=== PATIENT | male | born 1940 | race African-American/Black ===

== ENCOUNTER 2018-02-23 23:56 | Emergency (ER) | payer MEDICAID, MEDICARE, OTHER ==
[~2018-02-23] VITALS: Ht 182.9 cm; Wt 72.6 kg
[~2018-02-23 23:56] MED LIST: AMLODIPINE BESY10 MG ORAL; CYMBALTA20 MG ORAL; HYDROCHLOROTHIA25 MG ORAL; LEVETIRACETAM500 MG ORAL; LEVETIRACETAM500 MG PO; NORVASC2.5 MG ORAL; PLAVIX75 MG ORAL; SPIRONOLACTONE25 MG PO; VICODIN 5-5001 EACH ORAL; ZOLPIDEM TARTRA10 MG ORAL
[2018-02-24] MEDS ORDERED: Morphine Sulfate 2mg/ml Inj IVP ONE ×2 (00:30→03:00)
--- NOTE | 2018-02-24 00:30 | NUR ---
ED Nurse Note: Pt arrived ER with EMS and . Pt states he is cpughing with mucos and flu like syndrome. Pt is AO x 4times, VSS, on room air no distress, R side weakness due to Hx of stroke. CLARA seen Pt at bedside.
[2018-02-24 00:35] VITALS: BP 125/77
--- NOTE | 2018-02-24 00:40 | NUR ---
ED Nurse Note: Urine and blood sample sent to lab.
[2018-02-24 00:54] LABS: EOSINOPHILS % (AUTO) 0.8 % (0.0-3.0); HEMATOCRIT 43.4 % (42.0-52.0); HEMOGLOBIN 14.2 G/DL (14.2-18.0); LYMPHOCYTES % (AUTO) 17.4 % (20.0-45.0); MEAN CORPUSCULAR VOLUME 91 FL (80-99); MONOCYTES % (AUTO) 1.3 % (1.0-10.0); NEUTROPHILS % (AUTO) 79.5 % (45.0-75.0); PLATELET COUNT 163 K/UL (150-450); RED BLOOD COUNT 4.76 M/UL (4.70-6.10); RED CELL DISTRIBUTION WIDTH 13.6 % (11.6-14.8); WHITE BLOOD COUNT 6.2 K/UL (4.8-10.8)
[2018-02-24 00:57] LABS: APPEARANCE,URINE CLOUDY; BILIRUBIN, URINE NEGATIVE (NEGATIVE); GLUCOSE, URINE (UA) NEGATIVE (NEGATIVE); KETONES,URINE NEGATIVE (NEGATIVE); LEUKOCYTE ESTERASE ,URINE 3+ (NEGATIVE); NITRITE,URINE POSITIVE (NEGATIVE); PH,URINE 5 (4.5-8.0); PROTEIN,URINE 2+ (NEGATIVE); UROBILINOGEN,URINE NORMAL MG/DL (0.0-1.0)
[2018-02-24 00:59] LABS: COLOR,URINE YELLOW
--- NOTE | 2018-02-24 01:00 | NUR ---
ED Nurse Note: will visit Pt in the morning. Dorota [phone]
--- NOTE | 2018-02-24 01:05 | Emergency Room Report ---
History of Present Illness General Chief Complaint: Flu Like Symptoms Source: Patient, Significant Other, EMS Present Illness HPI Patient presents via EMS for complaint of back pain rigors and cough. Apparently the ran out of Brothers and the pharmacy is not filling the prescription for chronic back pain post stroke. This is more on the right-hand side. She did give Tylenol before paramedics arrived and after giving the Tylenol the patient had period of rigors without loss of consciousness. Also he had difficulty with breathing at that time with a cough. There was no choking episode. Patient initially denies hypertension but review of his medications show that he 's on Norvasc. In the last 3 months the has had to stop blood pressure medications because of hypotension. This has been done under the direction of her physician. The patient is on Plavix. Initially stated was on Coumadin which is not correct. The back pain is chronic and not changed. It's right-sided and radiates down into his leg. He has right-sided weakness from the stroke. He denies dysuria, diarrhea, constipation, chest pain, nausea, vomiting or skin rashes. Allergies: Coded Allergies: PENICILLINS (Verified Allergy, Mild, Hives, 07/07/12) Patient History Past Medical History: see triage record Social History: Denies: smoking - former, alcohol use, drug use Social History Narrative born in [place] Reviewed Nursing Documentation: PMH: Agreed; PSxH: Agreed Nursing Documentation-PMH Hx Cardiac Problems: Yes Hx Hypertension: No Hx Pacemaker: No Hx Asthma: No Hx COPD: No Hx Diabetes: No Hx Cancer: No Hx Gastrointestinal Problems: No Hx Dialysis: No History Of Psychiatric Problem: No Hx Neurological Problems: No Hx Cerebrovascular Accident: Yes Hx Transient Ischemic Attacks: Yes Hx Seizures: No Hx Weakness: Yes - R SIDED Review of Systems All Other Systems: negative except mentioned in HPI Physical Exam Vital Signs Date Time Temp Pulse Resp B/P (MAP) Pulse Ox O2 Delivery O2 Flow Rate FiO2 02/24/18 00:07 99.1 107 18 148/92 98 Room Air Sp02 EP Interpretation: reviewed, normal General Appearance: no apparent distress, GCS 15, Chronically Ill Head: normocephalic Eyes: right eye other - lid laxity; bilateral eye normal inspection, bilateral eye PERRL ENT: moist mucus membranes, other - Facial asymmetry with right weakness Neck: supple Respiratory: rales, rhonchi Cardiovascular #1: regular rate, rhythm Cardiovascular #2: 2+ radial (R) Gastrointestinal: normal inspection, normal bowel sounds, non tender, no mass, non-distended Musculoskeletal: back normal, normal range of motion Neurologic: alert, DTRs symmetric, sensory intact, motor weakness - R sided with atrophy, other - slurred speech Psychiatric: depressed affect Skin: normal color, no rash Medical Decision Making Diagnostic Impression: Primary Impression: Aspiration into airway Qualified Codes: T17.908A - Unspecified foreign body in respiratory tract, part unspecified causing other injury, initial encounter Additional Impressions: UTI (urinary tract infection) Qualified Codes: N39.0 - Urinary tract infection, site not specified Status post CVA Left lower lobe pneumonia Qualified Codes: J18.1 - Lobar pneumonia, unspecified organism ER Course Patient presents with rigors, rhonchi, right ears and back pain post stroke. Differential includes pneumonia, aspiration, acute myocardial infarction, other infectious source, sepsis, electrolyte imbalance amongst others. Based on the report seizure is less likely. Evaluation will be with EKG, chest x-ray and labs including blood cultures and lactate. The patient will be treated with breathing treatments and gentle IV hydration. Most likely he will need to be started on antibiotics. Based on the fact he's had a stroke and most likely is an aspiration the patient will need to have swallowing studies done before tolerating any oral medication. Patient NPO. EKG with NSR. Labs with UTI. Abx begun. Lactate elevated. Bolus NS. Patient not tachycardic and perfusion good, mentation normal according to . 1:30. Discussed with Dr. Lindsey who is working to try to transfer to [facility]. Repeat morphine for back pain. Repeat lactate improved, but still elevated. Continued hydration. Accepted at [facility]. Transfer ALS. Laboratory Tests Test 02/24/18 00:30 02/24/18 02:30 White Blood Count 6.2 K/UL (4.8-10.8) Red Blood Count 4.76 M/UL (4.70-6.10) Hemoglobin 14.2 G/DL (14.2-18.0) Hematocrit 43.4 % (42.0-52.0) Mean Corpuscular Volume 91 FL (80-99) Mean Corpuscular Hemoglobin 29.9 PG (27.0-31.0) Mean Corpuscular Hemoglobin Concent 32.7 G/DL (32.0-36.0) Red Cell Distribution Width 13.6 % (11.6-14.8) Platelet Count 163 K/UL (150-450) Mean Platelet Volume 7.0 FL (6.5-10.1) Neutrophils (%) (Auto) 79.5 % (45.0-75.0) H Lymphocytes (%) (Auto) 17.4 % (20.0-45.0) L Monocytes (%) (Auto) 1.3 % (1.0-10.0) Eosinophils (%) (Auto) 0.8 % (0.0-3.0) Basophils (%) (Auto) 1.0 % (0.0-2.0) Prothrombin Time 11.3 SEC (9.30-11.50) Prothrombin Time INR 1.1 (0.9-1.1) PTT 28 SEC (23-33) Urine Color Yellow Urine Appearance Cloudy Urine pH 5 (4.5-8.0) Urine Specific [place] 1.015 (1.005-1.035) Urine Protein 2+ (NEGATIVE) H Urine Glucose (UA) Negative (NEGATIVE) Urine Ketones Negative (NEGATIVE) Urine Blood 3+ (NEGATIVE) H Urine Nitrite Positive (NEGATIVE) H Urine Bilirubin Negative (NEGATIVE) Urine Urobilinogen Normal MG/DL (0.0-1.0) Urine Leukocyte Esterase 3+ (NEGATIVE) H Urine RBC 5-10 /HPF (0 - 0) H Urine WBC 40-60 /HPF (0 - 0) H Urine Squamous Epithelial Cells None /LPF (NONE/OCC) Urine Bacteria Many /HPF (NONE) H Sodium Level 139 MMOL/L (136-145) Potassium Level 3.6 MMOL/L (3.5-5.1) Chloride Level 101 MMOL/L (98-107) Carbon Dioxide Level 24 MMOL/L (21-32) Anion Gap 14 mmol/L (5-15) Blood Urea Nitrogen 12 mg/dL (7-18) Creatinine 0.9 MG/DL (0.55-1.30) Estimate Glomerular Filtration Rate mL/min (>60) Glucose Level 108 MG/DL (74-106) H Lactic Acid Level 3.30 mmol/L (0.4-2.0) H 2.50 mmol/L (0.66-2.22) H Calcium Level 9.0 MG/DL (8.5-10.1) Total Bilirubin 0.4 MG/DL (0.2-1.0) Aspartate Amino Transferase (AST) 18 U/L (15-37) Alanine Aminotransferase (ALT) 22 U/L (12-78) Alkaline Phosphatase 90 U/L (46-116) Total Creatine Kinase 62 U/L (26-308) Troponin I 0.000 ng/mL (0.000-0.056) Pro-B-Type Natriuretic Peptide 24 pg/mL (0-125) Total Protein 8.0 G/DL (6.4-8.2) Albumin 3.6 G/DL (3.4-5.0) Globulin 4.4 g/dL Albumin/Globulin Ratio 0.8 (1.0-2.7) L Microbiology Date/Time Source Procedure Growth Status 02/24/18 00:30 Nasal Nares Influenza Types A,B Antigen (DEREK) - Final Complete EKG Diagnostic Results Rate: normal Rhythm: NSR ST Segments: no acute changes - Nonspecific ST-T wave changes Rhythm Strip Diag. Results EP Interpretation: yes Rhythm: NSR, no PVC's, no ectopy Chest X-Ray Diagnostic Results Chest X-Ray Diagnostic Results : Chest X-Ray Ordered: Yes # of Views/Limited/Complete: 1 View Indication: Other EP Interpretation: Yes Interpretation: no effusion, no pneumothorax, other - Left lower lobe infiltr, right atelectasis Impression: Other Electronically Signed by: Electronically signed by Davin Bernardo MD Last Vital Signs Date Time Temp Pulse Resp B/P (MAP) Pulse Ox O2 Delivery O2 Flow Rate FiO2 02/24/18 04:32 97.6 70 19 113/65 100 Room Air 21 Status: improved Disposition: XFER SHT-TRM HOSP Condition: Serious Referrals: [facility],REFERRING (PCP) Davin Bernardo MD Feb 24, 2018 01:05
[2018-02-24 01:07] LABS: ANION GAP 14 mmol/L (5-15); BLOOD UREA NITROGEN 12 mg/dL (7-18); CARBON DIOXIDE 24 MMOL/L (21-32); CHLORIDE 101 MMOL/L (98-107); CREATININE 0.9 MG/DL (0.55-1.30); POTASSIUM 3.6 MMOL/L (3.5-5.1); SODIUM 139 MMOL/L (136-145)
[2018-02-24] MEDS ORDERED: cefTRIAXone 1 GM in NS 55 ML IVPB ONE (01:15)
[2018-02-24] MEDS ORDERED: Albuterol ud Inhalation HHN ONE (01:15)
[2018-02-24] MEDS ORDERED: Ipratropium 0.02% Inh Soln 2.5ml UD HHN ONE (01:15)
[2018-02-24 01:17] LABS: INR 1.1 (0.9-1.1)
[2018-02-24 01:18] LABS: ALANINE AMINOTRANSFERASE 22 U/L (12-78); ALBUMIN 3.6 G/DL (3.4-5.0); ALBUMIN/GLOBULIN RATIO 0.8 (1.0-2.7); ALKALINE PHOSPHATASE 90 U/L (46-116); ASPARTATE AMINO TRANSFERASE 18 U/L (15-37); BILIRUBIN,TOTAL 0.4 MG/DL (0.2-1.0); CREATINE KINASE 62 U/L (26-308)
--- NOTE | 2018-02-24 01:22 | NUR ---
ED Nurse Note: Faviola Queen IV med.
--- NOTE | 2018-02-24 01:38 | NUR ---
ED Nurse Note: Face sheet and clinicals faxed to [facility].
--- NOTE | 2018-02-24 01:55 | NUR ---
ED Nurse Note: Srart Levequin IV med.
--- NOTE | 2018-02-24 02:36 | NUR ---
ED Nurse Note: Lactic acid sample sent to lab.
[2018-02-24 02:54] VITALS: BP 116/64
--- NOTE | 2018-02-24 03:23 | NUR ---
ED Nurse Note: Pt will transfer to [facility]. Will give report later.
[2018-02-24 04:10] VITALS: BP 113/65
--- NOTE | 2018-02-24 04:10 | NUR ---
ED Nurse Note: EMT arrived to leaf size picker Pt. Pt is AO x 4times, VSS, on room air no distress. Report and belongings given to EMT Jacky.
--- NOTE | 2018-02-24 04:30 | NUR ---
ED Nurse Note: Report given to [facility] RN Kristie.
[2018-02-24 04:32] VITALS: BP 113/65
--- NOTE | 2018-02-24 04:37 | NUR ---
ED Nurse Note: Message left to Dorota, inform Pt transfer to [facility].
--- NOTE | 2018-02-24 11:22 | Diagnostic Imaging Report ---
Indication: Chest pain, shortness of breath Technique: XRAY Chest 1v Comparison: 10/31/2012 Findings: Limited exam with low lung volumes. Heart size and mediastinal contours are likely stable allowing for differences in patient positioning. There are bibasilar airspace opacities. No significant pleural effusion. No evidence of pneumothorax. There are degenerative changes of the spine. No acute osseous abnormality. Impression: Limited exam with low lung volumes. Bibasilar airspace opacities may be related to subsegmental atelectasis. Possibility of pneumonia should be excluded clinically.
--- NOTE | 2018-02-25 11:53 | Cardiology Report ---
APPROVED REPORT EKG Measurement Heart [id number] Normal sinus rhythm Low voltage QRS Cannot rule out Anterior infarct, age undetermined Abnormal ECG
== END 2018-02-24 04:34 | disposition short-term general hospital (02) ==
LOC: EDUNIT# 23:56 → EDBD 23:56 → EMR 02-24 00:20
DX: T17.908A Unspecified foreign body in respiratory tract, part unspecified causing other injury, initial encounter (principal); X58.XXXA Exposure to other specified factors, initial encounter; Y92.009 Unspecified place in unspecified non-institutional (private) residence as the place of occurrence of the external cause; N39.0 Urinary tract infection, site not specified; J18.9 Pneumonia, unspecified organism; I69.351 Hemiplegia and hemiparesis following cerebral infarction affecting right dominant side; Z88.0 Allergy status to penicillin
CPT/HCPCS: 36415; 71045; 80053; 81003; 82550; 83605; 83880; 84484; 85025; 85610; 85730; 86710; 87040; 87086; 87181; 93005; 94640; 94664; 96361; 96365; 96368; 96375; 96376; 99285; J0696; J1956; J2270; J2405